=== PATIENT | male | born 1985 | race Two or more races ===

== ENCOUNTER 2022-10-10 08:41 | Outpatient (CLI) | payer OTHER ==
[2022-10-10 09:25] VITALS: BP 122/70
--- NOTE | 2022-10-10 09:25 | SLEEP CARE CONSULTATION ---
Information from patient questionnaire entered by Moira Murphy. I have reviewed and concur with the information entered by Moira Murphy. This document represents the service I personally performed and the decisions made by me, Deepika Guerrier ARNP. History of Present Illness Service Date and Time: 10/10/2022 0841 Reason for Visit: New patient Chief Complaint: reports: Unrefreshed sleep, Snoring, Excessive daytime sleepiness, Fatigue Date of Onset: few years Usual bedtime: 10 PM Time it takes to fall asleep: 5 minutes Snores at night: Yes Observed to quit breathing while asleep: Yes Sleeps alone due to snoring: No Number of times waking at night: 3-4 Reasons for waking at night: reports: Snoring, Other (Unknown reasons; wakes up to stop snoring). denies: Choking, Gasping for air Toss, Turn, or Twitch while sleeping: Yes Recalls having dreams: No Usually gets out of bed at: 0445; 0530 on weekends Feels refreshed in the morning: No (feels "sluggish" in the mornings) Morning headache: Yes (2-3 times a week; may be due to neck arthritis/feels neck stiffness) Sleepy or fatigued during the day: Yes Ever fallen asleep while driving: No Takes day naps: No Dreams during day naps: No Prior sleep studies: No Additional HPI information: I had the pleasure of seeing CRISTINA HAMM today regarding the possibility of him having a sleep disorder. His current complaints are excessive daytime sleepiness, fatigue, snoring and unrefreshed sleep. He states his has told him he snores loudly. She has also noted him gasping in his sleep. He states he has not woke himself up with gasping for air. He does wake up a few times a night from his waking him to turn over and other unknown reasons. He does not remember dreaming. He states he does wake up with headaches a few times a week that last a few hours even after taking naproxen or Tylenol. He thinks it is more due to his neck. He has arthritis in his neck and he will wake up with neck stiffness with the headache. He does not take naps on weekdays but states is he sits down on couch to watch TV on the weekends he can doze off. He denies drowsy driving. He does have daytime fatigue/tiredness. He has an older brother who has sleep apnea and is on a CPAP machine. - Parasomnia Symptoms Ever been unable to move upon waking from sleep: Yes (had a dream like that once) Walks in sleep: No Talks in sleep: Yes Ever acted out dreams in sleep: No Ever felt weak in the knees when startled or emotional: No Bothered by creepy, crawly, restless sensations in legs: No Problems with memory or concentration: Yes (more concentration) Subjective Initial [place] Sleepiness Scale score: 15 (09/2022) Past Medical History Past Medical History: reports: Arthritis (neck) Social History The patient's occupation is a AM. Patient is and lives in [place]. Have you smoked in the past 12 months: No Alcohol use: Yes Alcohol amount and frequency: 2 beers with dinner on weekends Caffeine use: Yes Caffeine amount and frequency: 2 cups on weekdays Family History Family history of sleep disordered breathing: Yes Family Hx Sleep Apnea: Sibling: Snoring, Sleep apnea - Treated Allergies and Home Medications Known drug allergies: No Drug allergies reviewed: Yes Home medication list reviewed: Yes Allergy and home medication list: Medications: Zyrtec Probiotics Review of Systems Weight gain over past 5 years: 10 Cardiovascular: reports: high blood pressure (lately at doctor's office) Respiratory: reports: shortness of breath Gastrointestinal: denies: heartburn Neurological: reports: headaches. denies: head trauma Psychiatric: reports: anxiety Ear/Nose/Throat: reports: nasal congestion, sinus problems, dry mouth/throat (mostly when waking up in morning), tonsillectomy, wisdom teeth removed (has one left) Endocrine: reports: sluggishness, increased appetite Musculoskeletal: reports: joint pain, neck pain, back pain, joint swelling, mobi lity problems Immunologic: reports: sneezing, itching, allergies to food or environment Physical Exam Vital signs obtained and entered by: Paxton Llanes, supervisor molding Pressure: 122/70 Cuff size: regular (left arm) Heart Rate: 80 O2 Saturation: 96 Height: 5 ft 9 in Weight: 237 lb Body Mass Index: 34.9 BMI Classification: Obese Neck circumference: 18.5 (inches) Mouth and throat: normal Soft palate: long Hard palate: normal Uvula: long, edematous Uvula visualization: 50% Mallampati Class II Tongue: enlarged in size with teeth torres on lateral edges Tonsils: absent bilaterally Neck: normal w/o lymphadenopathy or thyromegaly Heart: regular rate and rhythm Lungs: clear bilaterally Impression and Plan 1. Suspected Obstructive Sleep Apnea-Hypopnea Syndrome, as suggested by a history of loud and irregular snoring, gasping or choking in sleep, morning headache, unrefreshed sleep, cognitive impairment, and excessive daytime sleepiness. Narrow oropharynx and obesity are common predisposing factors for obstructive sleep apnea-hypopnea syndrome. I recommend proceeding to polysomnography to confirm the diagnosis and to assess severity. If the patient has significant sleep disordered breathing, a manual CPAP titration study will a lso be performed to find the optimal treatment pressure. I informed the patient of what the sleep studies involve and after some discussion, obtained agreement to proceed. The pathophysiology of obstructive sleep apnea-hypopnea syndrome was discussed with the patient and health risks of cardiovascular and cerebrovascular disease if not treated. Risks of drowsy driving discussed in detail and patient advised to avoid long distance driving and to seedling puller at the first sign of drowsiness. Patient agreed to plan. * Schedule polysomnography * Avoid long distance driving or driving when feeling sleepy. * Avoid alcohol, sedative and muscle relaxant around bedtime. * Attempt to lose weight. * Review instructions provided by trained office staff on how to prepare for the sleep study. * Return for follow-up after sleep study completed. Counseling Topics: Weight loss health impact Visit Type: In Office Time Spent with Patient (minutes): 30 Provider Statement: I spent 100% of the Face to Face Visit with the patient with greater than 50% spent counseling the patient and coordination of care.
== END 2022-10-10 08:42 | disposition home or self-care (01) ==
LOC: SC 08:41
PROVIDERS: ATTEND Nurse Practitioner Family
DX: R06.83 Snoring (principal); G47.8 Other sleep disorders; R51.9 Headache, unspecified; G47.10 Hypersomnia, unspecified; R53.83 Other fatigue; E66.9 Obesity, unspecified; Z68.34 Body mass index [BMI] 34.0-34.9, adult
CPT/HCPCS: 99203; 99212

== ENCOUNTER 2022-10-14 19:29 | Outpatient (CLI) | payer OTHER | END 2022-10-14 19:30 | disposition home or self-care (01) | LOC: SC 19:29 | PROVIDERS: ATTEND Nurse Practitioner Family | DX: G47.33 Obstructive sleep apnea (adult) (pediatric) (principal) | CPT/HCPCS: 95810 ==

== ENCOUNTER 2022-11-01 14:49 | Outpatient (CLI) | payer OTHER ==
[2022-11-01 15:40] VITALS: BP 110/70
--- NOTE | 2022-11-01 15:40 | SLEEP CARE CONSULTATION ---
Information from patient questionnaire entered by Moira Murphy. I have reviewed and concur with the information entered by Moira Murphy. This document represents the service I personally performed and the decisions made by , Deepika Guerrier ARNP. History of Present Illness Service Date and Time: 11/01/2022 1449 Initial [place] Sleepiness Scale score: 15 (09/2022) Current [place] Sleepiness Scale score: 17 (11/01/22) Additional HPI information: CRSITINA HAMM returns for follow up and results of the recently performed polysomnography. I explained the pathophysiology behind obstructive sleep apnea. We then spent quite a bit of time discussing different treatment options. For mild obstructive sleep apnea, surgery and oral appliance are alternatives to nasal CPAP therapy but in moderate or severe cases, nasal CPAP is the most effective and reliable treatment. Because apnea is primarily in supine position, then positional management therapy could be effective. Methods discussed such as positioning with pillows to prevent supine sleep. I reviewed the impact of weight changes on sleep apnea and strongly recommended losing weight. After some discussion, the patient opted to go with the nasal CPAP therapy. Nasal autoCPAP set at 4-15 cmH20 will be ordered with rationale explained. A manual titration study will be ordered if unable to find optimal pressure with office adjustments. I explained how CPAP machine works and what to expect when using the machine. Using CPAP every night in order to get used to it was emphasized. Patient advised to put CPAP mask on before getting into bed so as not to fall asleep without CPAP. To assist acclimation to CPAP use, it could also be used for a short time during day while reading or watching TV. The patient was instructed to call the CPAP supplier to discuss any mechanical problem that may occur. If the mask given is uncomfortable or is difficult to keep on through the night even with adjustment, contact the CPAP supplier as many will replace with another mask style if notified before 30 days. If snoring or perceives is not getting enough air or too much air from the machine, notify this office. Patient counseled not drink alcohol less than 4 hours before bedtime as it can increase snoring and apnea. Patient was cautioned about risks of drowsy driving until sleepiness symptoms resolve. Patient denies drowsy driving. Sleep Study - Results Type of Sleep Study: Polysomnography (COMPLETED 10/14/22) Prior sleep studies: No Polysomnography/Home Sleep Study results: IMPRESSION: The quality of the study is good. The patient had slightly reduced sleep efficiency due to skin lap bonder awakening. The sleep architecture was abnormal for sleep fragmentation and reduced amount of time spent in REM and slow wave sleep (N3). Respiratory monitoring showed mild obstructive sleep apnea-hypopnea (AHI = 12.1) associated with frequent arousals, oxyhemoglobin desaturation and mild hypoxia (tip oxygen saturation of 84%). The patient only slept supine during this study (supine AHI = 12.2; non-supine = 0.00). Snore was light to moderate in intensity. There was no significant periodic leg movement of sleep. Cardiac rhythm was normal sinus rhythm without significant arrhythmia. No abnormal behavior (parasomnia) observed during the night. Allergies and Home Medications Drug allergies reviewed: Yes (NKDA) Home medication list reviewed: Yes (no changes) Review of Systems Review of systems same as previous: Yes (no changes) Physical Exam Vital signs obtained and entered by: MOIRA Hernandez MA Blood Pressure: 110/70 (LEFT ARM) Cuff size: regular Heart Rate: 61 O2 Saturation: 98 Height: 5 ft 9 in Weight: 233 lb 9.6 oz Body Mass Index: 34.4 BMI Classification: Obese Impression and Plan 1. Obstructive Sleep Apnea-Hypopnea Syndrome, mild, with lowest oxygen saturation of 84%. Obviously this is the cause of the patients symptoms of unrefreshed sleep, and excessive daytime sleepiness. As mentioned above, the patient will be started on nasal autoCPAP therapy with pressure set at 4-15 cmH2 O. Compliance guidelines also reviewed. A copy of compliance guidelines will be given for reference at check out. 2. Hypoxemia, mild, with a tip oxygen saturation of 84% and 7.9 minutes spent under 90%. His baseline oxygen saturation was normal with an average oxygen saturation of 93%. * Nasal auto CPAP therapy, pressure at 4-15 cm H2O. * Attempt to lose weight. * Avoid alcohol consumption near bedtime. * The patient is again cautioned about driving until sleepiness completely resolves. * Return one month after CPAP obtained. I will assess response to therapy and compliance at that time. Counseling Topics: Weight loss health impact Visit Type: In Office Time Spent with Patient (minutes): 20 Provider Statement: I spent 100% of the Face to Face Visit with the patient with greater than 50% spent counseling the patient and coordination of care.
== END 2022-11-01 14:50 | disposition home or self-care (01) ==
LOC: SC 14:49
PROVIDERS: ATTEND Nurse Practitioner Family
DX: G47.33 Obstructive sleep apnea (adult) (pediatric) (principal); R09.02 Hypoxemia; E66.9 Obesity, unspecified; Z68.34 Body mass index [BMI] 34.0-34.9, adult
CPT/HCPCS: 99212; 99213